=== PATIENT | male | born 1990 | race Caucasian/White ===

== ENCOUNTER 2016-08-05 10:44 | Emergency (ER) | payer OTHER, MEDICARE ==
[~2016-08-05] VITALS: Ht 180.3 cm; Wt 59.9 kg
[~2016-08-05 10:44] MED LIST: ALBUTEROL1.25 MG/3 INH; IBUPROFEN100 MG/51 PO; MOTRIN CHI100 MG/5 M PO; PROVENTIL HFA6.7 GM INH; ROBITUSSIN (SUG1 BOT PO; ROBITUSSIN COU118 M1 PO; TYLENOL/CODEINE5 ML PO; VIBRAMYCIN50 MG/5 ML PO; ZITHROMAX200 MG/52 PO; ZITHROMAX250 M2 PO
--- NOTE | 2016-08-05 11:49 | ED GI/GU/ABDOMINAL COMPLAINT ---
History of Present Illness General Chief Complaint: Nausea, Vomiting, Diarrhea Stated Complaint: NVD Source: patient, family Exam Limitations: no limitations Vital Signs & Intake/Output Vital Signs & Intake/Output Vital Signs Date Time Temp Pulse Resp B/P B/P Pulse O2 O2 Flow FiO2 Mean Ox Delivery Rate 08/05 1251 98.6 101 20 131/74 96 08/05 1158 Room Air 08/05 1057 98.7 102 15 132/77 100 Room Air Allergies Coded Allergies: azithromycin (From ZITHROMAX) (Intermediate, NAUSEA AND VOMITING 11/10/15) penicillin G (Intermediate, HIVES 11/10/15) morphine (CAN'T HAVE R/T GERMAINE ATAXIA 11/10/15) Reconcile Medications Albuterol Sulfate (Proventil Hfa) 6.7 GM HFA.AER.AD 2 PUF INH Q4 Shortness of Breath Azithromycin (Zithromax) 250 MG TABLET 1 DP PO AD COPD/BRONCHITIS 2 the first day followed by 1 for days 2-5 DISPENSE A LIQUID Guaifenesin/Dextromethorphan (Robitussin Cough-Chest Dm Liq) 118 ML LIQUID 5- 10 ML PO Q4 PRN COUGH Triage Note: PT TO ED FOR A THREE DAY HX OF NAUSEA AND VOMITING, REPORTING HE ATE A YI BUFFET ON SUNDAY AND STARTED FEELING SICK LATER THAT NIGHT. Triage Nurses Notes Reviewed? 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 MILD ABDOMINAL DISCOMFORT, NO DIARRHEA, AFEBRILE. FEELS NAUSEOUS AND DEHYDRATED WITH DECREASED APPETITE (CHANG RODRIGUEZ,[facility]) Past History Travel History Traveled to [place] past 21 day No Medical History Any Pertinent Medical History? 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 No (BREANN DOWNING MD) Review of Systems Review of Systems Constitutional: Reports: see HPI. EENTM: Reports: no symptoms. Respiratory: Reports: no symptoms. Cardiovascular: Reports: no symptoms. GI: Reports: see HPI. Genitourinary: Reports: no symptoms. Musculoskeletal: Reports: no symptoms. Skin: Reports: no symptoms. Neurological/Psychological: Reports: no symptoms. Hematologic/Endocrine: Reports: no symptoms. Immunologic/Allergic: Reports: no symptoms. All Other Systems: Reviewed and Negative (BREANN DOWNING MD) Physical Exam Physical Exam General Appearance: well developed/nourished, no apparent distress Head: normal appearance Ears, Nose, Throat, Mouth: DRY MUCOUS MEMBRANES Neck: normal inspection Respiratory: normal breath sounds Cardiovascular: regular rate/rhythm Gastrointestinal: soft, non-tender Rectal: deferred Core Measures ACS in differential dx? No Severe Sepsis Present: No Septic Shock Present: No (BREANN DOWNING MD) Progress Differential Diagnosis: appendicitis, biliary colic, cholecystitis, diverticulitis, gastritis, pancreatitis, peptic ulcer, PUD/GERD Plan of Care: Orders Procedure Date/time Status HEPATIC FUNCTION PANEL 08/05 1142 Complete CBC WITHOUT DIFFERENTIAL 08/05 1142 Complete BASIC ELECTROLYTES PLUS BUN&CR 08/05 1142 Complete Laboratory Tests 08/05/16 1145: Anion Gap 15, Estimated GFR > 60, BUN/Creatinine Ratio 21.4, Total Bilirubin 0.8 , Direct Bilirubin 0.4, AST 35, ALT 36, Alkaline Phosphatase 96, Total Protein 7.4, Albumin 4.5, CBC w Diff MAN DIFF ORDERED, RBC 5.68, MCV 89.2, MCH 30.0, RDW 12.7, MPV 10.2, Gran % 85.9 H, Lymphocytes % 5.1 L, Monocytes % 8.7, Eosinophils % 0.2, Basophils % 0.1, Absolute Granulocytes 13.6 H, Segmented Neutrophils 79 H, Band Neutrophils 7 H, Absolute Lymphocytes 0.8 L, Lymphocytes 5 L, Monocytes 8, Absolute Monocytes 1.4 H, Eosinophils 1, Absolute Eosinophils 0, Absolute Basophils 0, Platelet Estimate ADEQUATE, Normocytic RBCs VERIFIED, Normochromic RBCs VERIFIED, PUBS MCHC 33.6 Initial ED EKG: none (BREANN DOWNING MD) Departure Departure Disposition: HOME OR SELF CARE Condition: Stable Clinical Impression Primary Impression: Acute gastroenteritis Secondary Impressions: Dehydration Referrals: SALAZAR VANNESA RODRIGUEZ (PCP/Family) Additional Instructions: STAY WELL HYDRATED, FOLLOW UP WITH PCP Departure Forms: Customer Survey General Discharge Information (BREANN DOWNING MD) Primary Impression: Acute gastroenteritis Secondary Impressions: Dehydration Referrals: SALAZAR VANNESA RODRIGUEZ (PCP/Family) Additional Instructions: STAY WELL HYDRATED, FOLLOW UP WITH PCP Departure Forms: Customer Survey General Discharge Information (BREANN DOWNING MD)
[2016-08-05 12:06] LABS: ABSOLUTE BASOPHIL COUNT 0 /CUMM (0.0-0.2); ABSOLUTE EOSINOPHIL COUNT 0 /CUMM (0.0-0.7); ABSOLUTE LYMPH COUNT 0.8 /CUMM (1.2-3.4); ABSOLUTE MONOCYTE COUNT 1.4 /CUMM (0.10-0.60); EOSINOPHIL % 0.2 % (0-5); GRANULOCYTE % 85.9 % (42.2-75.2); MEAN CORPUSCULAR HGB CONC 33.6 G/DL (33.0-37.0); MEAN PLATELET VOLUME 10.2 FL (7.4-10.4); PLATELET COUNT 217 /CUMM (130-400); RBC DISTRIBUTION WIDTH 12.7 % (11.5-14.5); RED BLOOD CELL CT 5.68 /CUMM (4.70-6.10); WHITE BLOOD CELL COUNT 15.9 /CUMM (4.8-10.8)
[2016-08-05 12:10] LABS: ABSOLUTE GRANULOCYTE CT 13.6 /CUMM (1.4-6.5); BASOPHIL % 0.1 % (0.0-2.0); HEMATOCRIT 50.7 % (42-52); MEAN CORPUSCULAR VOLUME 89.2 FL (80.0-94.0)
[2016-08-05 12:51] VITALS: BP 131/74
== END 2016-08-05 14:00 ==
LOC: ERH 10:44
PROVIDERS: Internal Medicine
DX: K52.9 Noninfective gastroenteritis and colitis, unspecified (principal); E86.0 Dehydration
CPT/HCPCS: 82436; 96361; 96374; J2405

== ENCOUNTER 2017-09-04 19:06 | Inpatient (IN) | payer OTHER, MEDICARE ==
[~2017-09-04] VITALS: Ht 177.8 cm; Wt 59.0 kg
[2017-09-04] MEDS ORDERED: METHIMAZOLE10 M1 PO (19:25)
[2017-09-04 19:49] LABS: ABSOLUTE BASOPHIL COUNT 0 /CUMM (0.0-0.2); ABSOLUTE EOSINOPHIL COUNT 0.1 /CUMM (0.0-0.7); ABSOLUTE GRANULOCYTE CT 3.7 /CUMM (1.4-6.5); ABSOLUTE LYMPH COUNT 1.8 /CUMM (1.2-3.4); ABSOLUTE MONOCYTE COUNT 0.5 /CUMM (0.10-0.60); BASOPHIL % 0.7 % (0.0-2.0); EOSINOPHIL % 1.5 % (0-5); GRANULOCYTE % 60.3 % (42.2-75.2); HEMATOCRIT 44.7 % (42-52); MEAN CORPUSCULAR HGB 30.5 PG (27.0-31.0); MEAN CORPUSCULAR HGB CONC 33.7 G/DL (33.0-37.0); MEAN CORPUSCULAR VOLUME 90.4 FL (80.0-94.0); MEAN PLATELET VOLUME 9.2 FL (7.4-10.4); PLATELET COUNT 217 /CUMM (130-400); RED BLOOD CELL CT 4.95 /CUMM (4.70-6.10); WHITE BLOOD CELL COUNT 6.1 /CUMM (4.8-10.8)
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
--- NOTE | 2017-09-05 08:15 | ED PSYCH CRISIS CONSULTATION ---
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 The patient has become wheelchair bound and requires assistance for most activities of daily living. He presents calm and cooperative and had good participation in the evaluation. He did appear to struggle with some questions asked and needed them to be asked in different ways. He states that he has been depressed and he started to have suicidal ideations. He rates his depression a 9 out of 10 and his anxiety a 9 out of 10, 10 being the most severe. The patient states that he has never had any suicidal ideations until recently and feels that it became out of control yesterday. He states that he has never attempted suicide and did not have a plan yesterday. He denies any homicidal ideations. He states he has been feeling helpless, hopeless and useless with sleep and appetite disturbances. He reports that he has also had difficulty with energy, motivation and concentration. The patient reports that he has never had any treatment for his mental health issues. He states that he has been using Cannabis, however states that he is trying to stop using it. He denies any substance abuse treatment history. He states "that everything is difficult," noting that he requires assistance for almost all activities of daily living, secondary to his Fredreichs Ataxia. He denies any history of trauma or abuse. He states that he is not in a relationship and does not have any children. He states that he resides with his grandparents and that his aunts help to care for him. He is not sure what would be helpful at this time. Please see separate note for collateral information. Patient's Address: [address] [place] [address] Other Phone Number: Who Do You Live With? Family Family/Informants Interviewed: See separate collateral note Allergies - Coded Allergies: azithromycin (From ZITHROMAX) (Intermediate, NAUSEA AND VOMITING 11/10/15) penicillin G (Intermediate, HIVES 11/10/15) morphine (CAN'T HAVE R/T GERMAINE ATAXIA 11/10/15) Current Medications - Scheduled Medications Albuterol Sulfate (Proventil Hfa) 6.7 GM HFA.AER.AD 2 PUF INH Q4 Shortness of Breath #1 INHAL Prescribed by Amado Aguilar MD on 11/10/15 Azithromycin (Zithromax) 250 MG TABLET 1 DP PO AD COPD/BRONCHITIS #6 TAB Prescribed by Kai Callejas MD on 11/10/15 Methimazole 10 MG TABLET 1 TAB PO DAILY HYPERTHYROIDISM #100 (Reported) Entered as Reported by Fermín Richter on 09/04/171924 Scheduled PRN Medications Guaifenesin/Dextromethorphan (Robitussin Cough-Chest Dm Liq) 118 ML LIQUID 5- 10 ML PO Q4 PRN COUGH #1 Prescribed by Amado Aguilar MD on 11/10/15 Laboratory Results: Laboratory Tests 09/04/172210: Urine Opiates Screen < 100, Methadone Screen < 40, Barbiturate Screen < 60, Ur Phencyclidine Scrn < 6.00, Amphetamines Screen < 100, U Benzodiazepines Scrn < 85, Urine Cocaine Screen < 50, Urine Cannabis Screen 77.40 H 09/04/171937: Anion Gap 11, Estimated GFR > 60, BUN/Creatinine Ratio 13.3, Glucose 95, Calcium 10.0, Total Bilirubin 0.5, AST 30, ALT 28, Alkaline Phosphatase 70, Total Protein 6.8, Albumin 4.2, Globulin 2.6, Albumin/Globulin Ratio 1.6, CBC w Diff NO MAN DIFF REQ, RBC 4.95, MCV 90.4, MCH 30.5, MCHC 33.7, RDW 13.0, MPV 9.2, Gran % 60.3, Lymphocytes % 29.5, Monocytes % 8.0, Eosinophils % 1.5, Basophils % 0.7, Absolute Granulocytes 3.7, Absolute Lymphocytes 1.8, Absolute Monocytes 0.5 , Absolute Eosinophils 0.1, Absolute Basophils 0, Serum Alcohol < 10.0 Past History Past Medical History Neurological: NONE EENT: NONE Cardiovascular: Cardiomyopathy Respiratory: NONE Gastrointestinal: NONE Hepatic: NONE Renal: NONE Musculoskeletal: MUSCULAR DYSTROPHY GERMAINE ATAXIA COLLAR BONE FX FOREARM FX Gerson's Ataxia Psychiatric: NONE Endocrine: NONE Blood Disorders: NONE Cancer(s): NONE 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 Physical Limitations (Interventions): He has been diagnosed with Fredreichs Ataxia Psychiatric Treatment History Psych Treatment Psychiatric Treatment No (Pt. denies) Inpatient Treatment No Outpatient Treatment No Location of Treatment N/A Reason for Treatment N/A Dates of Treatment N/A Response to Treatment N/A Diagnosis by History: N/A Substance Use/Abuse History Drug Use/Abuse Substances Used/Abused Yes Substance Used/Abused Marijuana First Use Unknown Last Used Unclear How much used/taken Unclear How often 1x weekly For how long Unclear Route of use Inhalation Substance Abuse Treatment Substance Abuse Treatment Past Substance Abuse TX No Inpatient Treatment No Outpatient Treatment No Location of Treatment N/A Reason for Treatment N/A Dates of Treatment N/A Response to Treatment N/A Comments: N/A Current Mental Status Mental Status Orientation: Person, Place, Situation Affect: WNL Speech: Soft (Somewhat slowed) Neuro-vegetative: Appetite Decreased, Concentration Poor, Energy Decreased, Helpless, Sleep Disturbance Appearance Appearance- Dress/Hygiene: The patient was lying in bed, in hospital attire and appeared disheveled. Behaviors Thought Process: WNL Thought Content: WNL Memory: WNL Insight: WNL SI/HI Risk Assessment Past Suicidal Ideation/Attempts No Current Suicidal Ideation/Att Yes Past Homicidal Ideation/Att: No Current Homicidal Ideation/Attempts No Degree of Intent: The patient states that he recently started to have suicidal ideations. He denies any history of suicide attempts. Danger To: Self Gravely Disabled: N/A Risk Factors: chronic/serious med cond., high anxiety/distress, substance abuse, male Lethality Ratin PTSD Checklist PTSD Done? patient declined (Denies Trauma and abuse hx.) ED Management Sitter: Yes Restraints: No DSM5/PS Stressors/Medical Prob Diagnosis' (DSM 5, Stressors, Medical): F32.9 Unspecified Depressive Disorder F12.10 Cannabis use Disorder Medical: Fredreichs Ataxia Stressors: Chronic medical issue Current GAF: 29 Comments: N/A Departure Disposition Psych Medical Clearance Date: 09/05/17 Medically Cleared at: 0715 Time Started: 714 Time Ended: 799 Psychiatrist Consulted: Dr. Farias Date Disposition Established: 09/05/17 Time Disposition Established: 814 Plan for Disposition - Modality: Inpatient Psychiatry Facility: [facility] Rationale for Disposition: The patient presents with worsening symptoms of depression and suicidal ideations. The patient has been feeling helpless, hopeless and useless with sleep and appetite disturbances. He has had a decrease in motivation, energy and concentration. Case discussed with Dr. Hinojosa and the patient will be admitted to [facility]. He is willing to sign himself into the unit, however is physically unable to sign the paperwork. This sports book writer and CONCRETE PUMP OPERATOR HELPER Vic Graves will speak with the patient together and get verbal consent for admission. Type of IP Admission: Voluntary Additional Instructions: N/A Referrals Brito Vivek RODRIGUEZ (PCP/Family)
--- NOTE | 2017-09-05 11:22 | IP CRISIS DIAG ASSESS PSYCH ---
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 The patient has become wheelchair bound and requires assistance for most activities of daily living. He presents calm and cooperative and had good participation in the evaluation. He did appear to struggle with some questions asked and needed them to be asked in different ways. He states that he has been depressed and he started to have suicidal ideations. He rates his depression a 9 out of 10 and his anxiety a 9 out of 10, 10 being the most severe. The patient states that he has never had any suicidal ideations until recently and feels that it became out of control yesterday. He states that he has never attempted suicide and did not have a plan yesterday. He denies any homicidal ideations. He states he has been feeling helpless, hopeless and useless with sleep and appetite disturbances. He reports that he has also had difficulty with energy, motivation and concentration. The patient reports that he has never had any treatment for his mental health issues. He states that he has been using Cannabis, however states that he is trying to stop using it. He denies any substance abuse treatment history. He states "that everything is difficult," noting that he requires assistance for almost all activities of daily living, secondary to his Fredreichs Ataxia. He denies any history of trauma or abuse. He states that he is not in a relationship and does not have any children. He states that he resides with his grandparents and that his aunts help to care for him. He is not sure what would be helpful at this time. Please see separate note for collateral information. Patient's Address: [address] [place] [address] Other Phone Number: Who Do You Live With? Family Feel Safe Where You Live? Yes Feel Safe in Your Relationship No (Not in a relationship) If No, Please Elaborate: N/A Marital Status: single Do You Have Children? No Primary Language? Portuguese Family/Informants Interviewed: See separate collateral note Allergies - Coded Allergies: azithromycin (From ZITHROMAX) (Intermediate, NAUSEA AND VOMITING 11/10/15) penicillin G (Intermediate, HIVES 11/10/15) morphine (CAN'T HAVE R/T GERMAINE ATAXIA 11/10/15) Current Medications - Scheduled Medications Albuterol Sulfate (Proventil Hfa) 6.7 GM HFA.AER.AD 2 PUF INH Q4 Shortness of Breath #1 INHAL Prescribed by Amado Aguilar MD on 11/10/15 Azithromycin (Zithromax) 250 MG TABLET 1 DP PO AD COPD/BRONCHITIS #6 TAB Prescribed by Kai Callejas MD on 11/10/15 Methimazole 10 MG TABLET 1 TAB PO DAILY HYPERTHYROIDISM #100 (Reported) Entered as Reported by Fermín Richter on 09/04/171924 Scheduled PRN Medications Guaifenesin/Dextromethorphan (Robitussin Cough-Chest Dm Liq) 118 ML LIQUID 5- 10 ML PO Q4 PRN COUGH #1 Prescribed by Amado Aguilar MD on 11/10/15 Consequences of Psych Med Use: N/A Comment: N/A Lab Results: Laboratory Tests 09/05/17 1102: Urine Color YEL, Urine Clarity CLEAR, Urine pH 6.5, Ur Specific [place] 1.025, Urine Protein NEG, Urine Ketones NEG, Urine Nitrite NEG, Urine Bilirubin NEG, Urine Urobilinogen 0.2, Ur Leukocyte Esterase NEG, Ur Microscopic EXAM NOT REQUIRED, Urine Hemoglobin NEG, Urine Glucose NEG 09/04/17 2211: Urine Opiates Screen < 100, Methadone Screen < 40, Barbiturate Screen < 60, Ur Phencyclidine Scrn < 6.00, Amphetamines Screen < 100, U Benzodiazepines Scrn < 85, Urine Cocaine Screen < 50, Urine Cannabis Screen 77.40 H 09/04/17 1938: Anion Gap 11, Estimated GFR > 60, BUN/Creatinine Ratio 13.3, Glucose 95, Calcium 10.0, Total Bilirubin 0.5, AST 30, ALT 28, Alkaline Phosphatase 70, Total Protein 6.8, Albumin 4.2, Globulin 2.6, Albumin/Globulin Ratio 1.6, CBC w Diff NO MAN DIFF REQ, RBC 4.95, MCV 90.4, MCH 30.5, MCHC 33.7, RDW 13.0, MPV 9.2, Gran % 60.3, Lymphocytes % 29.5, Monocytes % 8.0, Eosinophils % 1.5, Basophils % 0.7, Absolute Granulocytes 3.7, Absolute Lymphocytes 1.8, Absolute Monocytes 0.5 , Absolute Eosinophils 0.1, Absolute Basophils 0, Serum Alcohol < 10.0 Toxicology Screen Completed? Yes Results: positive (Cannabis) Symptoms of Use: N/A Past History Past Medical History Medical History: Fredreichs Ataxia Past Surgical History Surgical History none Abuse/Trauma History Trauma History/Current Trauma: Denies Legal History Current Legal Status: none Have you ever been arrested? 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 Physical Limitations (Interventions): He has been diagnosed with Fredreichs Ataxia Psychiatric Treatment History Psych Treatment Psychiatric Treatment No (Pt. denies) Inpatient Treatment No Outpatient Treatment No Location of Treatment N/A Reason for Treatment N/A Dates of Treatment N/A Response to Treatment N/A Diagnosis by History: N/A Risk Factors: chronic/serious med cond., high anxiety/distress, substance abuse, male Substance Use/Abuse History Drug Use/Abuse minimum 12mo Hx Substances Used/Abused Yes Substance Used/Abused Marijuana First Use Unknown Last Used Unclear How much used/taken Unclear How often 1x weekly For how long Unclear Route of use Inhalation Substance Abuse Treatment Substance Abuse Treatment Past Substance Abuse TX No Inpatient Treatment No Outpatient Treatment No Location of Treatment N/A Reason for Treatment N/A Dates of Treatment N/A Response to Treatment N/A Comments: N/A Sexual History Sexual Concerns: None noted Education History Highest Level of Education: high school/GED Preferred Learning Style: Unknown Current Mental Status Mental Status Orientation: Person, Place, Situation Affect: WNL Speech: Soft (Somewhat slowed) Neuro-vegetative: Appetite Decreased, Concentration Poor, Energy Decreased, Helpless, Sleep Disturbance Appearance Appearance- Dress/Hygiene: The patient was lying in bed, in hospital attire and appeared disheveled. Behaviors Thought Process: WNL Thought Content: WNL Memory: WNL Insight: WNL SI/HI Risk Assessment - Minimum 6mo History- Past Suicidal Ideation/Attempts No Current Suicidal Ideation/Att Yes Past Homicidal Ideation/Att: No Current Homicidal Ideation/Attempts No Degree of Intent: The patient states that he recently started to have suicidal ideations. He denies any history of suicide attempts. Danger To: Self Gravely Disabled: N/A Risk Factors: chronic/serious med cond., high anxiety/distress, substance abuse, male Lethality Ratin Needs/Init TX Plan/Goals: Adimt to the inpatient unit for safety and symptom stabilization. Work with the providers on medication evaluation. Work with the Social Workers, to transtition to care in the community. Attend group, family and individual sessions. AUDIT-C Questionnaire: AUDIT-C Questionnaire: Response Value ETOH use in the past year Never 0 # drinks typical/day Doesn't Drink 0 6 or > drinks per occasion Never 0 Total 0 DSM5/PS Stressors/Medical Prob Diagnosis' (DSM 5, Stressors, Medical): F32.9 Unspecified Depressive Disorder F12.10 Cannabis use Disorder Medical: Fredreichs Ataxia Stressors: Chronic medical issue Current GAF: 29 Comments: N/A
[2017-09-05 12:47] VITALS: BP 130/75
--- NOTE | 2017-09-05 14:08 | CPS PROVIDER INIT ASMT PSYCH ---
See Addendum Psychiatric Admission Interactive Media Designer's Note Reviewed: Yes Patient Seen and Examined: Yes Identifying Information: young white man, bedbound Chief Complaint: depression and suicidal thinking Reaction to Hospitalization: agreeable History of Present Illness Onset of Illness: several months ago Circumstances Leading to Admission: debilitating medical illness with progression and needs assistance with ADLs, withdrawal and SI Problem(s) Justifying Need for Admission: suicidal thinking Other HPI: 27 year old gentleman without treated psychiatric history, current diagnosis of Friedreichs Ataxia, called 911 with suicidal thinking. His illness has progressed since he was in 3rd grade, and he is currently wheelchair bound and needs assistance with nearly all activities of daily living. He lives with his grandparents and cousin, who provide much of the care for him in addition to 3 days 3hours per week home care. His aunt Chrissie (Edelmira) was at bedside to provide some collateral. Both noted that his depressive symptoms have progressed over the last 5-6 months, with less energy, less motivation and impaired sleep. He has been unable to concentrate and lost interest in his activities. He has started using cannabis to improve his mood. States that life is difficult and that he is frustrated with his life. Luisito stated that he has been having suicidal thinking over the last several months, but yesterday it got very bad and he was unable to reach any family to speak to them, so he called 911. He has had no attempts and had no serious thoughts of following through on a suicide attempt, but his thoughts were to at one point run into the river with his wheelchair. He has little motivation to socialize or go outside, and stated that he has had impaired sleep over the last weeks. Last night however he slept well, and does feel better in the hospital. He denies current thoughts to , denies having any history of hallucinations and does not appear to have any psychotic thinking. Aunt stated that over the last few years, his high school friends have been getting , moving away, working etc, and that he has few people he socializes with apart from family. Noted that he usually gets up, gets assistance with toileting, eventually goes outside to the shed which is his man cave, and calls for his cousin to help move him back when he is ready to go inside the house. Some friends and family stop by to spend time with him, and his elderly grandparents and cousin provide much of his care. aunt noted a few odd text message related to politics over the last few months, but nothing that she would think is grossly strange or bizarre; apart from the depression and withdrawal, no bizarre behaviors or statements per her. Stated that they brought up his depression with his primary care provider, Dr. Brito, who at one point considered clonazepam, which Luisito was not interested in. Luisito stated that he saw a psychologist at school from age 11 after the of his mother (from liver disease) until he graduate high school around age 19, for about hour per week. He denied having any other outpatient or inpatient psychiatric treatment or any suicide attempts, or psychiatric medication. Past Psychiatric History Past Diagnosis(es)- if any: none - bereavement perhaps from of his mother at age 11 Past Precipitating Factors- if any: worsening depression, withdrawal, poor motivation, debilitating illness - Include inpatient and outpatient treatment Treatment History: Stated that they brought up his depression with his primary care provider, Dr. Brito, who at one point considered clonazepam, which Luisito was not interested in. Luisito stated that he saw a psychologist at school from age 11 after the of his mother (from liver disease) until he graduate high school around age 19, for about hour per week. He denied having any other outpatient or inpatient psychiatric treatment or any suicide attempts, or psychiatric medication. History of Suicide Attempts or Gestures none Substance Abuse History: started using cannabis, not regularly. smoked cigarettes intermittently and alcohol in the past but not for many months Allergies: Coded Allergies: azithromycin (From ZITHROMAX) (Intermediate, NAUSEA AND VOMITING 11/10/15) penicillin G (Intermediate, HIVES 11/10/15) morphine (CAN'T HAVE R/T GERMAINE ATAXIA 11/10/15) Home Med List: albuterol - Include any medical condition(s) that may - impact the patient's recovery/remission Past Medical History: Friedreich's Ataxia - cardiomyopathy, debilitating progressive muscle weakness, eyesight deterioration, thyroid illness. 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 History of MRSA: No History of VRE: No History of CDIFF: No Isolation History: Standard Surgical History Surgical History: none Psychiatric Family/Social Hx Family History Psychiatric Illness: unknown Substance Use: none Suicides: none Social History Living Situation: lives with grandparents and cousin Significant Relationships (family/friends): some friends Education: high school graduate Vocation/Occupation: worked in 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 - #1 Recognizing dangerous situations. - #2 Coping Skills. - #3 Basic information about quitting. Status of Tobacco Cessation Counseling: Not Applicable Cessation Med Status Not Applicable Alcohol Screening - ETOH screen POS if BAL >=80 or Audit-C>= M4/F3 Audit-C Score from Diag Assess: 0 Blood Alcohol Level: Laboratory Tests 09/04 1937 Toxicology Serum Alcohol (<10 MG/DL) < 10.0 Alcohol Use Screening Results: Neg per Audit C &/or BAL - If ETOH counseling indicated - the following topics are required. - #1 Express concern about the patient's - drinking at unhealthy levels, include informing - of national norms for moderate drinking: - men <= 14 drinks/week, max 4 drinks/occasion - women <= 7 drinks/week, max 3 drinks/occasion - #2 Providing feedback, including linking alcohol to - negative physical effects (liver injury, hypertension) - negative emotional effects (relationship problems and - depression) - negative occupational consequences (reduced work - performance) - #3 Advising the patient to abstain from alcohol or - to drink below national norms for moderate drinking - (as listed above). Status of ETOH Use Counseling: N/A B/C NO ETOH Use Metabolic Screening - Screen if on a Neuroleptic Medication - Metabolic screening should include: - Blood Pressure, BMI, Glucose or Hgb A1c, & a - Lipid profile from within the past 365 days. Metabolic Screening () Not Applicable, patient not on a neuroleptic. OR () Patient on a neuroleptic(s) . Enter below results for Hemoglobin A1C, and lipid panel if obtained during the last 365 days. BMI: 18.600 Blood Pressure: 130/75 Laboratory Results From [facility] (If applicable): Exam and Plan Mental Status Examination Ambulation Status: unable to Appearance: slim young man Attitude towards examiner: cooperative Psychomotor activity: slowed Behavior: slowed Quality of speech: dysarthric Affect: constricted Mood: down Suicidal Ideation: passive, not current Homicidal Ideation: none Hallucinations: none Paranoid/Delusional Material: none Difficulties with thought organization: none, some slowing and needs to have some things repeated due to difficulty hearing Insight: adequate Judgment: adequate Orientation: x3 Cognition: intact Memory Function: intact for basic tests Estimate of intellectual functioning: average Assets/Strengths Patient Identified Assets/Strengths: self aware, self help seeking, has supportive family, education and self advocate Impression/Plan Impression and Plan: 27 year old gentleman without treated psychiatric history, current diagnosis of Friedreichs Ataxia, called 911 with suicidal thinking. Presents with withdrawal , poor motivation, low energy and impaired sleep; intermittent suicidal thinking over the last 5-6 months; in context of debilitating muscular dystrophy, near total care, inadequate social network (friends), and inadequate home care services. Plan: Luisito is interested in medication for his mood, notably SSRI, and we discussed indications, length of treatment and potential AE. Aunt will bring wheelchair for him, so he can be in the milieu Groups, family support, work with SW and team to set up outpatient services and see if any more in home services can be added. Sitter for ADLs - Include all active medical diagnosis that require tx DSM 5 Diagnosis(es): major depressive disorder - Initial Tx Plan for Active Psych & Medical Conditions Treatment Plan: milieu therapy, antidepressant medication, outpatient planning, sitter for assistance in basic functions. - Factors that would help patient function - in a less restrictive setting. Factors: severe medical illness, high risk suicidal thoughts (run wheelchair into a river ), worsening depression - address with medication, groups, outpatient planning, therapy
--- NOTE | 2017-09-05 14:45 | History & Physical ---
General Information and HPI MD Statement: I have seen and personally examined ALANNA ARRINGTON and documented this H&P. The patient is a 27 year old M who presented with a patient stated chief complaint of suicidal ideations Source of Information: patient, old records Exam Limitations: unable to give history, poor historian History of Present Illness: Patient poor historianrosa obtained from medical records. "27 year old gentleman without treated psychiatric history, current diagnosis of Friedreichs Ataxia, called 911 with suicidal thinking. His illness has progressed since he was in 3rd grade, and he is currently wheelchair bound and needs assistance with nearly all activities of daily living. He lives with his grandparents and cousin, who provide much of the care for him in addition to 3 days 3hours per week home care. His aunt Chrissie (Edelmira) was at bedside to provide some collateral. Both noted that his depressive symptoms have progressed over the last 5-6 months, with less energy, less motivation and impaired sleep. He has been unable to concentrate and lost interest in his activities. He has started using cannabis to improve his mood. States that life is difficult and that he is frustrated with his life." He denies headache, cough, chest pain , nausea, abdomnial pain, diarhea, urinary symptoms. ROS negative excpt as above. Allergies/Medications Allergies: Coded Allergies: azithromycin (From ZITHROMAX) (Intermediate, NAUSEA AND VOMITING 11/10/15) penicillin G (Intermediate, HIVES 11/10/15) morphine (CAN'T HAVE R/T GERMAINE ATAXIA 11/10/15) Home Med list Albuterol Sulfate (Proventil Hfa) 6.7 GM HFA.AER.AD 2 PUF INH Q4 Shortness of Breath Azithromycin (Zithromax) 250 MG TABLET 1 DP PO AD COPD/BRONCHITIS 2 the first day followed by 1 for days 2-5 DISPENSE A LIQUID Guaifenesin/Dextromethorphan (Robitussin Cough-Chest Dm Liq) 118 ML LIQUID 5- 10 ML PO Q4 PRN COUGH Methimazole 10 MG TABLET 1 TAB PO DAILY HYPERTHYROIDISM (Reported) Compliance With Home Meds: FAIR Past History Travel History Traveled to [place] past 21 day No Medical History Neurological: dementia (freidrich ataxia) EENT: NONE Cardiovascular: Cardiomyopathy Respiratory: NONE Gastrointestinal: NONE Hepatic: NONE Renal: NONE Musculoskeletal: MUSCULAR DYSTROPHY GERMAINE ATAXIA COLLAR BONE FX FOREARM FX Gerson's Ataxia Psychiatric: NONE Endocrine: hyperthyroidism Blood Disorders: NONE Cancer(s): NONE 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 Home Services at Home: Home Health Aide, Social Work Primary Language: Nicarag[place] Smoking Status: Unknown If Ever Smoked Other Social History: needs help with daily activities Functional Ability ADLs Needs Assist: dressing, eating. Ambulation: non-ambulatory IADLs Needs Assist: transportation. Review of Systems Review of Systems Constitutional: Denies: no symptoms, diaphoresis, fever, malaise. EENTM: Denies: blurred vision, ear discharge, ear pain. Cardiovascular: Denies: chest pain. Respiratory: Denies: cough, short of breath. GI: Denies: abdominal pain, diarrhea. Genitourinary: Denies: dysuria. Musculoskeletal: Denies: back pain. Neurological/Psychological: Reports: ataxia, cognitive dysfunction, dementia, emotional problems. Hematologic/Endocrine: Denies: no symptoms. Exam & Diagnostic Data Last 24 Hrs of Vital Signs/I&O Vital Signs Date Time Temp Pulse Resp B/P B/P Pulse O2 O2 Flow FiO2 Mean Ox Delivery Rate 09/05 1247 97.8 68 130/75 09/05 1150 98.7 60 18 139/85 99 Room Air Room Air 09/05 0605 98.1 50 14 114/63 100 Room Air 09/04 2334 98.2 50 16 113/74 98 Room Air 09/04 2209 98.7 56 16 112/72 96 Room Air 09/04 1910 99.0 68 16 134/68 96 Room Air Intake & Output 09/05 1600 04 0800 09/05 0000 Intake Total 0 Output Total Balance 0 Intake, Oral 0 Patient 58.967 kg 58.967 kg Weight Weight Reported by Patient Measurement Method Physical Exam General Appearance Alert, Oriented X3, Cooperative, No Acute Distress Skin No Rashes, No Breakdown HEENT Atraumatic, PERRLA, EOMI Neck Supple, No JVD Cardiovascular Regular Rate Lungs Normal Air Movement Abdomen Soft, No Tenderness Neurological Exam Findings: Cranial Nerves 3-12 NL Cranial Nerves II through XII: intact Extremities No Clubbing, No Cyanosis Last 24 Hrs of Labs/Fabiano: Laboratory Tests 09/05/17 1102: Urine Color YEL, Urine Clarity CLEAR, Urine pH 6.5, Ur Specific [place] 1.025, Urine Protein NEG, Urine Ketones NEG, Urine Nitrite NEG, Urine Bilirubin NEG, Urine Urobilinogen 0.2, Ur Leukocyte Esterase NEG, Ur Microscopic EXAM NOT REQUIRED, Urine Hemoglobin NEG, Urine Glucose NEG 09/04/17 2211: Urine Opiates Screen < 100, Methadone Screen < 40, Barbiturate Screen < 60, Ur Phencyclidine Scrn < 6.00, Amphetamines Screen < 100, U Benzodiazepines Scrn < 85, Urine Cocaine Screen < 50, Urine Cannabis Screen 77.40 H 09/04/17 1938: Anion Gap 11, Estimated GFR > 60, BUN/Creatinine Ratio 13.3, Glucose 95, Calcium 10.0, Total Bilirubin 0.5, AST 30, ALT 28, Alkaline Phosphatase 70, Total Protein 6.8, Albumin 4.2, Globulin 2.6, Albumin/Globulin Ratio 1.6, CBC w Diff NO MAN DIFF REQ, RBC 4.95, MCV 90.4, MCH 30.5, MCHC 33.7, RDW 13.0, MPV 9.2, Gran % 60.3, Lymphocytes % 29.5, Monocytes % 8.0, Eosinophils % 1.5, Basophils % 0.7, Absolute Granulocytes 3.7, Absolute Lymphocytes 1.8, Absolute Monocytes 0.5 , Absolute Eosinophils 0.1, Absolute Basophils 0, Serum Alcohol < 10.0 Diagnostic Data EKG Results obtain EKG Assessment/Plan As Ranked By This Provider Problem List: 1. Hyperthyroidism Miscellaneous Miscellaneous Documentation Attending Case Discussed With: Radha Jules MD Primary Care Physician: Vivek Brito MD Patient sees these Specialists PCP as per records Level of Patient Care: [facility] Attending Review Statement Attending Statement Attending Statement: examined this patient, reviewed EMR data (avail), discussed with nursing Attending Assessment/Plan: 27 o/m with pmh of freidrich ataxia with baseline poor functional status and dependent on ADLs ia admitted to [facility] service for suicidal ideations and severe depression. Concepcion has been on board and plan is to start SSRI. Please obtain baseline EKG and if QTC is not prolonged steven start SSRI. Will resume his home medication of methimazole for hyperthyroidim. Obtaining baseline TFTs would be helpful. Will continue to provide supportive care as needed.
--- NOTE | 2017-09-05 15:07 | ED PSYCHIATRIC COMPLAINT ---
History of Present Illness General Chief Complaint: Psychiatric Related Complaint Stated Complaint: UNSPECIFIED DEPRESSION Vital Signs & Intake/Output Vital Signs & Intake/Output Vital Signs Date Time Temp Pulse Resp B/P B/P Pulse O2 O2 Flow FiO2 Mean Ox Delivery Rate 09/05 1641 56 112/60 07 1247 97.8 68 130/75 09/05 1150 98.7 60 18 139/85 99 Room Air Room Air 09/05 0605 98.1 50 14 114/63 100 Room Air 09/04 2334 98.2 50 16 113/74 98 Room Air 09/04 2209 98.7 56 16 112/72 96 Room Air 09/04 1910 99.0 68 16 134/68 96 Room Air ED Intake and Output 09/05 0000 09/04 1200 Intake Total 0 Output Total Balance 0 Intake, Oral 0 Patient 130 lb Weight Weight Reported by Patient Measurement Method Allergies Coded Allergies: azithromycin (From ZITHROMAX) (Intermediate, NAUSEA AND VOMITING 11/10/15) penicillin G (Intermediate, HIVES 11/10/15) morphine (CAN'T HAVE R/T GERMAINE ATAXIA 11/10/15) Reconcile Medications Albuterol Sulfate (Proventil Hfa) 6.7 GM HFA.AER.AD 2 PUF INH Q4 Shortness of Breath Azithromycin (Zithromax) 250 MG TABLET 1 DP PO AD COPD/BRONCHITIS 2 the first day followed by 1 for days 2-5 DISPENSE A LIQUID Guaifenesin/Dextromethorphan (Robitussin Cough-Chest Dm Liq) 118 ML LIQUID 5- 10 ML PO Q4 PRN COUGH Methimazole 10 MG TABLET 1 TAB PO DAILY HYPERTHYROIDISM (Reported) Triage Note: [facility] FROM HOME. PER EMS PT CALLED 911 BECAUSE HE HAS BEEN HAVING SI X 2 MONTHS. PT DENIED A PLAN. PT RESTING COMFORTABLY ON THE STRETCHER NOW. PT STATES "I JUST CAN'T TAKE MY LIFE ANYMORE. I FELL LIKE I WANT TO FALL OFF A ANGELITA." PT DENIES ANY ATTEMPTS. PT DENIES DRUG OR ALCOHOL USE. PT STATES HE LIVES WITH HIS GRANDPARENTS AND ITS GETTING HARDER FOR HIS GRANDPARENTS TO TAKE CARE OF HIM. PT STATES "MY GRANDMA HAS DEMENTIA AND MY GRANDPA HAS DIABETES NOW." PT DENIES ANY PAIN. PT DENIES ANY OTHER COMPLAINTS AT THIS TIME. 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 History of MRSA: No History of VRE: No History of CDIFF: No Isolation History: Standard Pneumonia Vaccine Status: Unknown if ever received Surgical History Surgical History: non-contributory Psychosocial History Where do you live Home Who do you live with Grandfather Services at Home Home Health Aide, Social Work What is your primary language Vietnamese Tobacco Use: Quit >30 days ago Other addictive behavior Hx needs help with daily activities Progress Plan of Care: Orders Procedure Date/time Status THYROID STIMULATING HORMONE 09/06 06 Active FREE T4 09/06 06 Active Regular Diet 09/05 B Active EKG 09/05 1600 Active INPT Psych Sitter 09/05 1540 Active Vital Signs 09/05 1240 Active Inpt Psych Teach/Educate 09/05 1240 Active Nutritional Intake, Monitor 09/05 1240 Active Inpt Psych Auricular Acupunctu 09/05 1240 Active Admit to inpatient psych 09/05 1036 Active URINALYSIS 09/05 0729 Complete Nursing Misc 09/05 UNK Active CP [place] Sitter/Safety Monitor 09/05 UNK Active ED CRISIS PSYCH CONSULT 09/04 2016 Active Intake & Output 09/04 1921 Complete Continuous Observation Monitor 09/04 1921 Complete URINE DRUGS OF ABUSE 09/04 1921 Complete ETHANOL 09/04 1921 Complete COMPREHENSIVE METABOLIC PANEL 09/04 1921 Complete CBC WITHOUT DIFFERENTIAL 09/04 1921 Complete Current Medications Sig/Phillip Start time Last Medication Dose Stop Time Status Admin Methimazole 10 MG DAILY 09/06 0900 AC (Tapazole 5 MG Tablet) Albuterol Sulfate 2 PUF Q4 HRS NEEDED PRN 09/05 1400 AC (Ventolin) Laboratory Tests 09/05/17 1102: Urine Color YEL, Urine Clarity CLEAR, Urine pH 6.5, Ur Specific [place] 1.025, Urine Protein NEG, Urine Ketones NEG, Urine Nitrite NEG, Urine Bilirubin NEG, Urine Urobilinogen 0.2, Ur Leukocyte Esterase NEG, Ur Microscopic EXAM NOT REQUIRED, Urine Hemoglobin NEG, Urine Glucose NEG 09/04/17 2211: Urine Opiates Screen < 100, Methadone Screen < 40, Barbiturate Screen < 60, Ur Phencyclidine Scrn < 6.00, Amphetamines Screen < 100, U Benzodiazepines Scrn < 85, Urine Cocaine Screen < 50, Urine Cannabis Screen 77.40 H 09/04/17 1938: Anion Gap 11, Estimated GFR > 60, BUN/Creatinine Ratio 13.3, Glucose 95, Calcium 10.0, Total Bilirubin 0.5, AST 30, ALT 28, Alkaline Phosphatase 70, Total Protein 6.8, Albumin 4.2, Globulin 2.6, Albumin/Globulin Ratio 1.6, CBC w Diff NO MAN DIFF REQ, RBC 4.95, MCV 90.4, MCH 30.5, MCHC 33.7, RDW 13.0, MPV 9.2, Gran % 60.3, Lymphocytes % 29.5, Monocytes % 8.0, Eosinophils % 1.5, Basophils % 0.7, Absolute Granulocytes 3.7, Absolute Lymphocytes 1.8, Absolute Monocytes 0.5 , Absolute Eosinophils 0.1, Absolute Basophils 0, Serum Alcohol < 10.0 Departure Departure Condition: Stable Referrals: Brito Vivek RODRIGUEZ (PCP/Family) Departure Forms: Customer Survey General Discharge Information
[2017-09-05 16:41] VITALS: BP 112/60
--- NOTE | 2017-09-05 17:37 | ED PSYCHIATRIC COMPLAINT ---
History of Present Illness General Chief Complaint: Psychiatric Related Complaint Stated Complaint: UNSPECIFIED DEPRESSION Source: patient, family Exam Limitations: no limitations Vital Signs & Intake/Output Vital Signs & Intake/Output Vital Signs Date Time Temp Pulse Resp B/P B/P Pulse O2 O2 Flow FiO2 Mean Ox Delivery Rate 09/05 1641 56 112/60 09/05 1247 97.8 68 130/75 09/05 1150 98.7 60 18 139/85 99 Room Air Room Air 09/05 0605 98.1 50 14 114/63 100 Room Air 09/04 2334 98.2 50 16 113/74 98 Room Air 09/04 2209 98.7 56 16 112/72 96 Room Air 09/04 1910 99.0 68 16 134/68 96 Room Air ED Intake and Output 09/05 0000 09/04 1200 Intake Total 0 Output Total Balance 0 Intake, Oral 0 Patient 130 lb Weight Weight Reported by Patient Measurement Method Allergies Coded Allergies: azithromycin (From ZITHROMAX) (Intermediate, NAUSEA AND VOMITING 11/10/15) penicillin G (Intermediate, HIVES 11/10/15) morphine (CAN'T HAVE R/T CORWIN ATAXIA 11/10/15) Reconcile Medications Albuterol Sulfate (Proventil Hfa) 6.7 GM HFA.AER.AD 2 PUF INH Q4 Shortness of Breath Azithromycin (Zithromax) 250 MG TABLET 1 DP PO AD COPD/BRONCHITIS 2 the first day followed by 1 for days 2-5 DISPENSE A LIQUID Guaifenesin/Dextromethorphan (Robitussin Cough-Chest Dm Liq) 118 ML LIQUID 5- 10 ML PO Q4 PRN COUGH Methimazole 10 MG TABLET 1 TAB PO DAILY HYPERTHYROIDISM (Reported) Triage Note: [facility] FROM HOME. PER EMS PT CALLED 911 BECAUSE HE HAS BEEN HAVING SI X 2 MONTHS. PT DENIED A PLAN. PT RESTING COMFORTABLY ON THE STRETCHER NOW. PT STATES "I JUST CAN'T TAKE MY LIFE ANYMORE. I FELL LIKE I WANT TO FALL OFF A ANGELITA." PT DENIES ANY ATTEMPTS. PT DENIES DRUG OR ALCOHOL USE. PT STATES HE LIVES WITH HIS GRANDPARENTS AND ITS GETTING HARDER FOR HIS GRANDPARENTS TO TAKE CARE OF HIM. PT STATES "MY GRANDMA HAS DEMENTIA AND MY GRANDPA HAS DIABETES NOW." PT DENIES ANY PAIN. PT DENIES ANY OTHER COMPLAINTS AT THIS TIME. Triage Nurses Notes Reviewed? 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 Patient reports that he lives with his grandparents. He reports he lost his grandparents very much but he feels that his care at home and she is not very good. He's been increasingly depressed. He reports that the other young individual in the house that lives there that's his cousin is a drug addict. He feels very depressed and upset. Denies any alcohol or drug use. Denies any other associated symptoms. (Collins Underwood) Past History Travel History Traveled to [place] past 21 day No Medical History Any Pertinent Medical History? 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 No (Collins Underwood) Review of Systems Review of Systems Constitutional: Reports: no symptoms. EENTM: Reports: no symptoms. Respiratory: Reports: no symptoms. Cardiovascular: Reports: no symptoms. GI: Reports: no symptoms. Genitourinary: Reports: no symptoms. Musculoskeletal: Reports: no symptoms. Skin: Reports: no symptoms. Neurological/Psychological: Reports: see HPI. Hematologic/Endocrine: Reports: no symptoms. Immunologic/Allergic: Reports: no symptoms. All Other Systems: Reviewed and Negative (Collins Underwood) Physical Exam Physical Exam General Appearance: no apparent distress, alert, mild distress Head: atraumatic Eyes: Bilateral: normal appearance. Ears, Nose, Throat: normal ENT inspection, hearing grossly normal Neck: normal inspection Respiratory: normal breath sounds, no respiratory distress Cardiovascular: regular rate/rhythm Neurological/Psychiatric: awake, alert, depressed affect Appearance/Memory/Insight: appropriate appearance Behavoir/Eye Contact/Speech: cooperative Thoughts/Hallucinations: no apparent hallucination Skin: intact, normal color, warm/dry SAD PERSONS SAD PERSONS Response Value Male Sex? yes 1 Depression/Hopelessness? yes 2 Rational Thinking Loss? yes 2 Single//? yes 1 Total 6 SAD PERSONS Done? yes (Selvin ACHARYA,Collins) Progress Differential Diagnosis: dementia, drug intoxication, drug overdose, drug withdrawal, Depression, anxiety, PTSD, Plan of Care: Orders Procedure Date/time Status THYROID STIMULATING HORMONE 09/06 599 Active FREE T4 09/06 06 Active Regular Diet 09/05 B Active EKG 09/05 1600 Active INPT Psych Sitter 09/05 1540 Active Vital Signs 09/05 1240 Active Inpt Psych Teach/Educate 09/05 1240 Active Nutritional Intake, Monitor 09/05 1240 Active Inpt Psych Auricular Acupunctu 09/05 1240 Active Admit to inpatient psych 09/05 1036 Active URINALYSIS 09/05 0729 Complete Nursing Misc 09/05 UNK Active CP South Sitter/Safety Monitor 09/05 UNK Active ED CRISIS PSYCH CONSULT 09/04 2016 Active Intake & Output 09/04 1921 Complete Continuous Observation Monitor 09/04 1921 Complete URINE DRUGS OF ABUSE 09/04 1921 Complete ETHANOL 09/04 1921 Complete COMPREHENSIVE METABOLIC PANEL 09/04 1921 Complete CBC WITHOUT DIFFERENTIAL 09/04 1921 Complete Current Medications Sig/Phillip Start time Last Medication Dose Stop Time Status Admin Methimazole 10 MG DAILY 09/06 0900 AC (Tapazole 5 MG Tablet) Albuterol Sulfate 2 PUF Q4 HRS NEEDED PRN 09/05 1400 AC (Ventolin) Laboratory Tests 09/05/17 1102: Urine Color YEL, Urine Clarity CLEAR, Urine pH 6.5, Ur Specific [place] 1.025, Urine Protein NEG, Urine Ketones NEG, Urine Nitrite NEG, Urine Bilirubin NEG, Urine Urobilinogen 0.2, Ur Leukocyte Esterase NEG, Ur Microscopic EXAM NOT REQUIRED, Urine Hemoglobin NEG, Urine Glucose NEG 09/04/17 2211: Urine Opiates Screen < 100, Methadone Screen < 40, Barbiturate Screen < 60, Ur Phencyclidine Scrn < 6.00, Amphetamines Screen < 100, U Benzodiazepines Scrn < 85, Urine Cocaine Screen < 50, Urine Cannabis Screen 77.40 H 09/04/178: Anion Gap 11, Estimated GFR > 60, BUN/Creatinine Ratio 13.3, Glucose 95, Calcium 10.0, Total Bilirubin 0.5, AST 30, ALT 28, Alkaline Phosphatase 70, Total Protein 6.8, Albumin 4.2, Globulin 2.6, Albumin/Globulin Ratio 1.6, CBC w Diff NO MAN DIFF REQ, RBC 4.95, MCV 90.4, MCH 30.5, MCHC 33.7, RDW 13.0, MPV 9.2, Gran % 60.3, Lymphocytes % 29.5, Monocytes % 8.0, Eosinophils % 1.5, Basophils % 0.7, Absolute Granulocytes 3.7, Absolute Lymphocytes 1.8, Absolute Monocytes 0.5 , Absolute Eosinophils 0.1, Absolute Basophils 0, Serum Alcohol < 10.0 (Collins Underwood) Departure Departure Disposition: HOME OR SELF CARE Condition: Stable Clinical Impression Primary Impression: Depression Referrals: Brito Vivek RODRIGUEZ (PCP/Family) Departure Forms: Customer Survey General Discharge Information Psych Admission Note Psychiatric Admission: I have seen and evaluated ALANNA ARRINGTON. I have also reviewed all the pertinent lab results and diagnostic results. ALANNA ARRINGTON will be admitted to our inpatient Psychiatric unit for treatment and care. (Collins Underwood) PA/BOBBIN TRUCKER Co-Sign Statement Statement: ED Attending supervision documentation- [] I saw and evaluated the patient. I have also reviewed all the pertinent lab results and diagnostic results. I agree with the findings and the plan of care as documented in the PA's/BOBBIN TRUCKER's documentation. [X] I have reviewed the ED Record and agree with the PA's/BOBBIN TRUCKER's documentation. [] Additions or exceptions (if any) to the PAs/BOBBIN TRUCKER's note and plan are summarized below: [] (Ashley RODRIGUEZ,Timothy Zapata)
[2017-09-05 19:52] VITALS: BP 121/64
--- NOTE | 2017-09-06 08:33 | CP SOUTH PROGRESS NOTE PSYCH ---
Psych (Inpt) Progress Note Progress Note Laboratory Tests 09/06 09/05 TSH (0.270 - 4.200 uIU/mL) 7.360 H Free T4 (0.79 - 2.35 ng/dL) 0.80 Urine Color (YEL,AMB,STR) YEL Urine Clarity (CLEAR) CLEAR Urine pH (5.0 - 8.0) 6.5 Ur Specific [place] (1.001 - 1.035) 1.025 Urine Protein (NEG,<30 MG/DL) NEG Urine Ketones (NEG) NEG Urine Nitrite (NEG) NEG Urine Bilirubin (NEG) NEG Urine Urobilinogen (0.1 - 1.0 EU/dl) 0.2 Ur Leukocyte Esterase (NEG) NEG Ur Microscopic EXAM NOT REQUIRED Urine Hemoglobin (NEG) NEG Urine Glucose (N MG/DL) NEG Vital Signs Date Time Temp Pulse Resp B/P B/P Pulse O2 O2 Flow 09/06 1951 98.0 56 121/64 09/05 1641 56 112/60 09/05 1247 97.8 68 130/75 09/05 1150 98.7 60 18 139/85 99 Room Air Room Air Mental status examination: The patient is a thin young white male in a wheelchair. He was calm and cooperative. Showed reduced psychomotor activity because of his neurological condition (Corwin ataxia) slowed, dysarthric speech, constricted affect, mood is "down", denied wishing or thinking of suicide denied violent thoughts or thoughts of homicide coherent, no thoughts disorder, no delusions difficulty hearing adequate , alert and oriented x3, intact, Assessment: 27 year old single White male with Friedreichs Ataxia, called 911 with suicidal thinking. Presents with withdrawal, poor motivation, low energy and impaired sleep; intermittent suicidal thinking over the last 5-6 months; in context of debilitating muscular dystrophy, near total care, inadequate social network ( friends), and inadequate home care services. Diagnosis(es): major depressive disorder Treatment Plan: start Sertraline 50 mg daily May use PRN ativan for sleep/insomnia Groups, family support, work with SW and team to set up outpatient services and see if any more in home services can be added. Sitter for ADLs - Include all active medical diagnosis that require tx DSM 5 Diagnosis(es): major depressive disorder - Initial Tx Plan for Active Psych & Medical Conditions Treatment Plan: milieu therapy, antidepressant medication, outpatient planning, sitter for assistance in basic functions. - Factors that would help patient function - in a less restrictive setting. Factors: severe medical illness, high risk suicidal thoughts (run wheelchair into a river ), worsening depression - address with medication, groups, outpatient planning, therapy DICTATED BY: Radha Jules MD DATE/TIME DICTATED:09/05/171357 QUANTOMETER OPERATOR:CRISS DATE/TIME TRANSCRIBED:09/05/171357 REPORT NUMBER:[id number] CONFIDENTIAL, DO NOT COPY WITHOUT APPROPRIATE AUTHORIZATION. <Electronically signed by Radha Jules MD> 09/05/171408 CC: Report Status: Signed Report #: [id number] Page[p pg] ADDENDUM: Luda Jules MD on 09/05/17 at 194 Addendum Note Addendum Discussed any issues with starting SSRI for Luisito with developer prover mechanical, rec just for baseline EKG with Qtc. He is amenable to medications, can discuss tmr after EKG (ordered for today). (ordered for today). - in a less restrictive setting. Factors: severe medical illness, high risk suicidal thoughts (run wheelchair into a river ), worsening depression - address with medication, groups, outpatient planning, therapy DICTATED BY: Radha Jules MD DATE/TIME DICTATED:09/05/171357 QUANTOMETER OPERATOR:CRISS DATE/TIME TRANSCRIBED:09/05/171357 REPORT NUMBER:[id number] CONFIDENTIAL, DO NOT COPY WITHOUT APPROPRIATE AUTHORIZATION. <Electronically signed by Radha Jules MD> 09/05/171408 CC: Report Status: Signed Report #: [id number] Page[p pg] ADDENDUM: Luda Jules MD on 09/05/17 at 1941 Addendum Note Addendum Discussed any issues with starting SSRI for Luisito with developer prover mechanical, rec just for baseline EKG with Qtc. He is amenable to medications, can discuss tmr after EKG (ordered for today).
[2017-09-06 12:05] VITALS: BP 119/68
--- NOTE | 2017-09-06 12:08 | SOCIAL WORKER SOCIAL HX PSYCH ---
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 The patient has become wheelchair bound and requires assistance for most activities of daily living. He presents calm and cooperative and had good participation in the evaluation. He did appear to struggle with some questions asked and needed them to be asked in different ways. He states that he has been depressed and he started to have suicidal ideations. He rates his depression a 9 out of 10 and his anxiety a 9 out of 10, 10 being the most severe. The patient states that he has never had any suicidal ideations until recently and feels that it became out of control yesterday. He states that he has never attempted suicide and did not have a plan yesterday. He denies any homicidal ideations. He states he has been feeling helpless, hopeless and useless with sleep and appetite disturbances. He reports that he has also had difficulty with energy, motivation and concentration. The patient reports that he has never had any treatment for his mental health issues. He states that he has been using Cannabis, however states that he is trying to stop using it. He denies any substance abuse treatment history. He states "that everything is difficult," noting that he requires assistance for almost all activities of daily living, secondary to his Fredreichs Ataxia. He denies any history of trauma or abuse. He states that he is not in a relationship and does not have any children. He states that he resides with his grandparents and that his aunts help to care for him. He is not sure what would be helpful at this time. Primary Language? Lao Living Situation Other Living Arrangement: relative's/guardian's adam (lives with grandparents ) Feel Safe Where You Are Living Yes Feel Safe in Relationships? Yes Allergies - Coded Allergies: azithromycin (From ZITHROMAX) (Intermediate, NAUSEA AND VOMITING 11/10/15) penicillin G (Intermediate, HIVES 11/10/15) morphine (CAN'T HAVE R/T GERMAINE ATAXIA 11/10/15) Current Medications - Scheduled Medications Albuterol Sulfate (Proventil Hfa) 6.7 GM HFA.AER.AD 2 PUF INH Q4 Shortness of Breath #1 INHAL Prescribed by Amado Aguilar MD on 11/10/15 Azithromycin (Zithromax) 250 MG TABLET 1 DP PO AD COPD/BRONCHITIS #6 TAB Prescribed by Kai Callejas MD on 11/10/15 Methimazole 10 MG TABLET 1 TAB PO DAILY HYPERTHYROIDISM #100 (Reported) Entered as Reported by Fermín Richter on 09/04/171924 Scheduled PRN Medications Guaifenesin/Dextromethorphan (Robitussin Cough-Chest Dm Liq) 118 ML LIQUID 5- 10 ML PO Q4 PRN COUGH #1 Prescribed by Amado Aguilar MD on 11/10/15 Past History Past Medical History Neurological: dementia (freidrich ataxia) EENT: NONE Cardiovascular: Cardiomyopathy Respiratory: NONE Gastrointestinal: NONE Hepatic: NONE Renal: NONE Musculoskeletal: MUSCULAR DYSTROPHY GERMAINE ATAXIA 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 No Explain: He said he is not aware of any Mother's Age (Current/): 36 Relationship w/Mother: really good Father's Age (Current/): 63 Relationship w/Father: "Not bad" Any Sibling(s)? Yes (Step siblings) Sibling's Gender(s)/Age(s): male Sibling 1: (Did not find out ages), female Sibling 2: Relationship w/Sibling(s): He responded by saying he hasn't seen them in five years Relationship w/Friends: I do not know" I dont think they like me." Family Psych/Sub Abuse/Add Hx: drug of choice, diagnosis (father PTSD) Other Comments: Cousin had substance abuse history Abuse/Trauma History Trauma History/Current Trauma: Denies History of Trauma/Abuse Treatment? No Abuse/Trauma Treatment: NA Legal History Legal Guardian/Address/Phone: Grandparents Current Legal Status: none Pending Court Dates: NA Have you ever been arrested No Number of Arrests: 0 Hx of Juvenile Legal Charges? No Hx of Adult Legal Charges? No Civil Proceedings: NA Domestic Relations Court: NA Child Protective Serv Involvmnt NA Consultant [employer]. Vice President [employer] (Ex ) N/A Psychosocial History Primary Support System: grandparent(s) Strengths/Capabilities: The patient resides at home, with supportive family. Weaknesses: needs total care Physical Limitations (Interventions): He has been diagnosed with Fredreichs Ataxia Last Physical: 3 years ago History of Seizures? No Last Seizure: NA History of Blackouts? No ADL Limitations: The patient requires full care [place]/Social/Peer Relations He does not think they like him Childhood Latter-Day: Evangelical Current Orthodoxy Affiliation: Evangelical Is Spirituality Important to You? "Yes, but it is not the most important thing " Patient's Ethnicity: White Cultural/Ethnic Issues: Cymro Are There Developmental Issues? No Milestones Achieved: fine motor, gross motor Psychiatric Treatment History Psych Treatment Inpatient Treatment No Outpatient Treatment No Location of Treatment N/A Reason for Treatment N/A Dates of Treatment N/A Response to Treatment N/A Current Transitional Care Nurse: [facility] Diagnosis: N/A Risk Factors: chronic/serious med cond., high anxiety/distress, substance abuse, male Substance Use/Abuse History Drug Use/Abuse:Min 12 mo hx Substance Used/Abused Marijuana First Use Unknown Last Used Unclear How much used/taken Unclear How often 1x weekly For how long Unclear Route of use Inhalation Have Had Periods of Sobriety? No Explain: One been off of it for one week Have You Ever Attended AA? Yes Do You Attend AA Currently? Yes Symptoms of Use: N/A Substance Abuse Treatment Substance Abuse Treatment Inpatient Treatment No Outpatient Treatment No Location of Treatment N/A Reason for Treatment N/A Dates of Treatment N/A Response to Treatment N/A Sexual History Sexually Active No # of partners 0 Sexual Concerns: None noted Education History Highest Level of Education: high school/GED Number of College Years: 0 College Degree/Major: none Preferred Learning Style: Unknown HX of Learning Difficulties: None reported Barriers to Learning: None reported Special Communication Needs: None reported Employment History Employment Disability Not in Labor Force: Disabled Vocation/Occupational Hx: N/A No. of Jobs in Last 5 Years: 0 History Have You Been in The ? No Date of Discharge: N/A Current Mental Status Mental Status Orientation: Person, Place, Situation Affect: WNL Speech: Soft (Somewhat slowed) Neuro-vegetative: Appetite Decreased, Concentration Poor, Energy Decreased, Helpless, Sleep Disturbance Appearance Appearance- Dress/Hygiene: The patient was sitting up in the group room and was cooperative and engaged, He was wearing hospital scrubs Behaviors Thought Process: WNL Thought Content: WNL Memory: WNL Insight: WNL SI/HI Risk Assessment Past Suicidal Ideation/Attempts Yes Current Suicidal Ideation/Att No Past Homicidal Ideation/Att: No Current Homicidal Ideation/Attempts No Degree of Intent: The patient stated that he recently started to have suicidal ideations. He denies any history of suicide attempts. Danger To: Self Gravely Disabled: N/A Lethality Ratin - Conclusion and Recommendations for treatment - and discharge planning Summary: The patient has supportive grandparents that he is living with. He will work on way to reduce his feelings of depression. He was cooperative and engaged when completing this social. He will need support with daily activities.
[2017-09-06 16:04] VITALS: BP 127/63
--- NOTE | 2017-09-06 17:22 | SOCIAL WORKER PROG NOTE PSYCH ---
Social Work Progress Note Progress Note This publications writer met with patient, who stated that he came to because "I'm depressed." He identified primary stressors as his grandmother's dementia, his grandfather's diabetes and interpersonal stressors with his cousin. Patient stated that he had been experiencing SI in the past (though denied any plan with this publications writer; nursing indicated during the team meeting this morning that patient reported a plan to drive his wheelchair into the river). He denied any SI today. Patient stated that he had not been receiving any psychiatric outpatient treatment, but would like referrals. He stated that he has been receiving in home PT/OT and visiting nurse services. He requests an increase in visiting nurse services. He was unaware of any names of these agencies. Patient reported MJ use, 1-2 times per week of about 1/4 ounce per week. He denied any other substance use. When asked about AH, patient stated that he occassionally hears eagles or car doors slamming. He denied VH or other hallucinations. He denied HI. Patient is agreeable to a family meeting with his cousin, Yao Goddard [phone]. He identified another cousin who assists the patient, however states that this cousin is not reliable. Patient is interested in IOP, but unsure about transportation due to the cousin being unreliable.
[2017-09-06 19:53] VITALS: BP 113/59
[2017-09-07 08:31] VITALS: BP 119/74
--- NOTE | 2017-09-07 08:36 | CP SOUTH PROGRESS NOTE PSYCH ---
Psych (Inpt) Progress Note Progress Note Treatment team (JESSICA, RN, Group and Activities Therapist, and psychiatrist) discussed Pt.'s progress, treatment plan, and aftercare plans. Vital Signs: Date Time Temp Pulse B/P 09/07 0831 96.2 58 119/74 09/06 1953 98.6 64 113/59 09/06 1604 61 127/63 Mental status examination: The patient was interviewed in his room in his bed. He was alert and oriented to time, place, and person. He was calm and cooperative. He showed slowed, dysarthric speech, constricted affect, he reported that he is starting to feel better, he denied feeling hopeless. He denied wishing or thinking of suicide, denied violent thoughts or thoughts of homicide, He was coherent, no thoughts disorder, no delusions, difficulty hearing, adequate Assessment: Luisito Short is a 27-year old Single White male with Friedreichs Ataxia who was admitted to [facility] Inpatient unit with suicidal thinking (intermittent suicidal thinking over the last 5-6 months; Diagnoses: Major depressive disorder Friedreichs Ataxia Treatment Plan Update: Continue Sertraline 50 mg daily May use PRN ativan for sleep/insomnia Aftercare planning
[2017-09-07 12:04] VITALS: BP 102/55
[2017-09-07 15:48] VITALS: BP 103/50
--- NOTE | 2017-09-07 19:04 | SOCIAL WORKER PROG NOTE PSYCH ---
Social Work Progress Note Progress Note SW met with pt 1:1 in the common area, he was sitting with a patient sitter watching TV. He expressed having difficulty hearing me throughout the conversation. Pt states he is beginning to like it here. However, he misses going outside for fresh air and he doen't get to move his limbs (no OT/PT) he claims since he has been hospitalized. Pt reports that he doesn't get enough help at home. I only get an Aide for one hour per day, 3 times weekly. "I need more help". He states his grandmother recently had surgery on her hand and she is getting older and not able to do for him as much as she did before. Pt shared that being at home with limited help is really getting harder for him to manage and it makes him feel sad and depressed. Pt. denies current thoughts of suicide. Pt denies AV/VH. Pt is interested in full home care services and would like this to be set up inorder for him to return home with more help as he transitions back to the community.
[2017-09-07 20:13] VITALS: BP 123/70
--- NOTE | 2017-09-08 08:19 | CP SOUTH PROGRESS NOTE PSYCH ---
Psych (Inpt) Progress Note Progress Note Vital Signs Date Time Temp Pulse B/P B/P O2 09/09 0758 98.0 62 121/76 09/07 2012 97.1 59 123/70 Mental Status examination: alert & oriented to time, place, and person calm and cooperative slow, dysarthric speech, constricted affect, Mood is "better," denies feeling hopeless, denies wishing or thinking of suicide denied violent thoughts or thoughts of homicide, coherent, no thoughts disorder, no delusions ? 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 Since his admission, Pt. has been denying thoughts of suicide Diagnoses: Major depressive disorder Friedreichs Ataxia Treatment Plan Update: Continue Sertraline 50 mg daily Continue PRN ativan for sleep/insomnia Aftercare planning
[2017-09-08 08:58] VITALS: BP 121/76
[2017-09-08 12:21] VITALS: BP 126/59
[2017-09-08 16:38] VITALS: BP 118/76
[2017-09-08 20:04] VITALS: BP 128/70
--- NOTE | 2017-09-09 08:14 | CP SOUTH PROGRESS NOTE PSYCH ---
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 Pt. has been denying thoughts of suicide since September 05, 2017 Diagnoses: Major Depressive Disorder Friedreichs Ataxia Treatment Plan Update: Continue Sertraline 50 mg daily Continue PRN ativan for sleep/insomnia
[2017-09-09 08:15] VITALS: BP 127/75
[2017-09-09 12:09] VITALS: BP 109/57
[2017-09-09 16:11] VITALS: BP 97/60
[2017-09-09 17:53] VITALS: BP 110/63
[2017-09-09 20:03] VITALS: BP 133/61
--- NOTE | 2017-09-10 07:58 | CP SOUTH PROGRESS NOTE PSYCH ---
See Addendum Psych (Inpt) Progress Note Progress Note Vital Signs Date Time Temp Pulse B/P 09/10 822 97.1 88 116/52 09/09 2002 97.9 68 133/61 09/09 1753 66 110/63 Mental Status Examination: Luisito described an episode of paranoia that lasted about 3 hours in his estimation. This was last night. He reported that he felt that somebody put the CPR mask on his on his bed for reason he thinks that that people in the unit including staff were up to something. He reported that he still have some lingering feelings of that this morning. He denied that it is a daily feeling but that he has experienced that at home a couple of times. He reported that the frequency of the paranoia as "once in a while". He denied hearing any mumbling voices. He did report that sometime last week and denied that it has been going on since. 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 Pt. has been denying thoughts of suicide since September 05, 2017. Today was the first time he reports an episode of paranoia he reported that last night he felt that people in the unit may be up to something against him. He reported that he felt that somebody put the CPR mask on his bed for reason and somebody is causing him to be constipated. Diagnoses (Updated 09/10/2017): Major Depressive Disorder ? with psychotic features (paranoia) Friedreichs Ataxia rule out Unspecified Psychotic Disorder Treatment Plan Update: Add Risperdal 0.5 mg twice daily Continue Sertraline 50 mg daily. Continue PRN ativan for sleep/insomnia. Fasting lipid panel and hemoglobin A 1C for tomorrow morning
[2017-09-10 08:23] VITALS: BP 116/52
[2017-09-10 12:10] VITALS: BP 96/60
[2017-09-10 16:24] VITALS: BP 124/74
--- NOTE | 2017-09-10 19:24 | SOCIAL WORKER PROG NOTE PSYCH ---
Social Work Progress Note Progress Note Clinician unable to meet with pt he was in an AA meeting on the unit. Phone contact with Edelmira hugo's aunt she will call back on 09/11/17 with a date and time for a family meeting.
[2017-09-10 20:01] VITALS: BP 120/69
[2017-09-11 07:42] VITALS: BP 121/71
--- NOTE | 2017-09-11 07:59 | CP SOUTH PROGRESS NOTE PSYCH ---
Psych (Inpt) Progress Note Progress Note Treatment team (JESSICA, RN, Group and Activities Therapist, and psychiatrist) discussed Pt.'s progress, treatment plan, and aftercare plans. Vital Signs Date Time Temp Pulse B/P B/P O2 09/11 0742 97.4 73 121/71 09/10 2000 97.5 73 120/69 09/10 1624 76 124/74 Mental Status Examination: Luisito was alert & oriented to time, place, and person. He reported his ears being plugged, thinks it is wax, had this before result with drops.. Denied ear pain. He denied hallucinations and denied any further episodes of paranoia. He denied hearing any mumbling voices. He did report that sometime last week and denied that it has been going on since. 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 Pt. has been denying thoughts of suicide since September 05, 2017. 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 Pt. has been denying thoughts of suicide since September 05, 2017. Today was the first time he reports an episode of paranoia he reported that last night he felt that people in the unit may be up to something against him. He reported that he felt that somebody put the CPR mask on his bed for reason and somebody is causing him to be constipated. Diagnoses (Updated 09/10/2017): Major Depressive Disorder ? with psychotic features (paranoia) Friedreichs Ataxia rule out Unspecified Psychotic Disorder Treatment Plan Update: Add Risperdal 0.5 mg twice daily Continue Sertraline 50 mg daily. Continue PRN ativan for sleep/insomnia. Fasting lipid panel and hemoglobin A 1C for tomorrow morning Continue PRN ativan for sleep/insomnia. Fasting lipid panel and hemoglobin A 1C for tomorrow morning
[2017-09-11] MEDS ORDERED: PROVENTIL HFA6.7 GM INH (10:18)
[2017-09-11] MEDS ORDERED: TAPAZOLE5 MG PO (10:34)
[2017-09-11] MEDS ORDERED: DOCUSATE SODIU100 M3 PO (10:34)
[2017-09-11] MEDS ORDERED: SERTRALINE HCL50 MG PO (10:34)
--- NOTE | 2017-09-11 10:35 | Patient Discharge Instructions ---
Psych Discharge Inst General Discharge Information Reason for Admission: voicing thoughts of suicide Psy Discharge Primary Diag+ Major Depressive Disorder Summary Tests/Major Procedures Lab Hemoglobin A1c 5.0 % 09/11/17 0645 Studies Pending at DC: none Patient Instructions Contact Information Your Psychiatrist on [facility] was Dallas Hubbard MD * If you are experiencing an emergency related to this hospitalization, please call [phone] to contact the treating psychiatrist or the psychiatrist-on- call. * To Request a copy of your medical records, please contact the Medical Records Department at [phone]. * To request results of studies pending at the time of discharge, please call [phone]. * Continue your Medications until directed to stop by your Healthcare provider. General Medication Information Please continue to take your new medications and your continued home medications , unless otherwise indicated on your discharge medication list, or unless directed by your MD or CYLINDER TESTER to stop them. Special Instructions Diet Regular Activity Normal - Tobacco Use Treatment Offered Post DC Medications Offered: Not Applicable Post DC Tobacco Treatment Plan: Not Applicable - EtOH/Drug Use D/O Treatment Offered Post DC Medications Offered: NA-No EtOH/Drug Use D/O Post DC EtOH/SubAbuse [place] Plan: NA-No EtOH/Drug Use D/O Advance Directives Does the Patient have Medical Advance Directives No/Refused further info Does Pt have Psychiatric Advance Directives? No/Refused further info Does Patient have a Designated Surrogate Decision Maker: No Information About Psychiatric Advance Directives Provided? Refused Discharge Plan Post Hospital Treatment Plan: Outpatient psychiatrist and Psychiatric CYLINDER TESTER
--- NOTE | 2017-09-11 10:42 | DISCHARGE SUMMARY REPORT-PSYCH ---
Visit Information Visit Dates/Diagnosis' Admission Date: 09/05/17 Discharge Date: 09/11/17 Reason for Admission: voicing thoughts of suicide Psy Discharge Primary Diag: Major Depressive Disorder Hospital Course Significant Lab Findings: Lab Hct 44.7 % 09/04/171937 Hgb 15.1 G/DL 09/04/171937 Course Complications: The patient did not have any complications while he was on the inpatient psychiatric unit. Allergies: Coded Allergies: azithromycin (From ZITHROMAX) (Intermediate, NAUSEA AND VOMITING 11/10/15) penicillin G (Intermediate, HIVES 11/10/15) morphine (CAN'T HAVE R/T GERMAINE ATAXIA 11/10/15) Hospital Course/TX Response: 09/05/2017: Dr. Pitt's Impression and Plan: 27 year old gentleman without treated psychiatric history, current diagnosis of Friedreichs Ataxia, called 911 with suicidal thinking. Presents with withdrawal , poor motivation, low energy and impaired sleep; intermittent suicidal thinking over the last 5-6 months; in context of debilitating muscular dystrophy, near total care, inadequate social network (friends), and inadequate home care services. Plan: Luisito is interested in medication for his mood, notably SSRI, and we discussed indications, length of treatment and potential AE. Aunt will bring wheelchair for him, so he can be in the milieu Groups, family support, work with SW and team to set up outpatient services and see if any more in home services can be added. Sitter for ADLs 09/06/2017: start Sertraline 50 mg daily May use PRN ativan for sleep/insomnia. 09/07/2017: Continue Sertraline 50 mg daily May use PRN ativan for sleep/insomnia Aftercare planning. 09/08/2017: No changes in the patient's treatment plan or medications. 09/09/2017: No changes in the patient's treatment plan or medications. 09/10/2017: Add Risperdal 0.5 mg twice daily as patient reported an episode of paranoia the night before , he said it lasted for about 3 hours Continue Sertraline 50 mg daily. Continue PRN ativan for sleep/insomnia. Fasting lipid panel and hemoglobin A 1C for tomorrow morning 09/11/2017: Treatment team (JESSICA, RN, Group and Activities Therapist, and psychiatrist) discussed Pt.'s progress, treatment plan, and aftercare plans. Vital Signs Date Time Temp Pulse B/P B/P O2 09/11 0742 97.4 73 121/71 09/10 2000 97.5 73 120/69 09/10 1624 76 124/74 Mental Status Examination: Luisito was alert & oriented to time, place, and person. He reported his ears being plugged, thinks it is wax, had this before result with drops.. Denied ear pain. He denied hallucinations and denied any further episodes of paranoia. He denied hearing any mumbling voices. He did report that sometime last week and denied that it has been going on since. 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 Pt. has been denying thoughts of suicide since September 05, 2017. Today, he denied paranoia, denied any hallucinations & there was no thought disorder Discharge Diagnoses: Major Depressive Disorder Friedreichs Ataxia Treatment Plan Update: D/C Home today Discharge HBIPS - Tobacco Use Treatment Offered Post DC Medications Offered: Not Applicable Post DC Tobacco Treatment Plan: Not Applicable - EtOH/Drug Use D/O Treatment Offered Post DC Medications Offered: NA-No EtOH/Drug Use D/O Post DC EtOH/SubAbuse [place] Plan: NA-No EtOH/Drug Use D/O Metabolic Screening - Screen if on a Neuroleptic Medication - Metabolic screening should include: - Blood Pressure, BMI, Glucose or Hgb A1c, & a - Lipid profile from within the past 365 days. Metabolic Screening Not Applicable, patient not on a neuroleptic. Discharge Instructions General Discharge Information Multiple Neuroleptics: Not Applicable Discharge Diet Regular Discharge Activity Normal DC Disposition: Home Referrals Ordered Referrals Provider Referral 09/11/17 For Groups: [[facility]] Pt will resume [facility] services for tomorrow including a social work referral [facility] [phone] [address], [place] Provider Referral 09/13/17 For Groups: [[facility]] Pt was referred to the [facility], . They will connect with pt and family on 09/13/17 for individual therapy. Provider Referral 10/02/17 For Providers: [Janee] For Groups: [ Outpatient] Pt has a follow up with Outpatient Psychiatry Dr. Weller on: 10/02/17 at 3pm at: [address] [place], [place] [phone] Prescriptions Stop taking the following medications: Guaifenesin/Dextromethorphan (Robitussin Cough-Chest Dm Liq) 118 ML LIQUID ORAL Every 4 hours as needed for COUGH Qty = 1 Azithromycin (Zithromax) 250 MG TABLET ORAL As Directed Qty = 6 Methimazole (Methimazole) 10 MG TABLET ORAL DAILY Qty = 100 Continue taking these medications: Albuterol Sulfate (Proventil Hfa) 6.7 GM HFA.AER.AD 2 Puff Inhale through mouth Every 4 hours Qty = 1 Comments: Last Taken:09/09/17 Time:6PM This prescription has been renewed Start taking the following new medications: Sertraline HCl (Sertraline HCl) 50 MG TABLET 50 Milligram ORAL DAILY Qty = 30 No Refills Comments: Last Taken:09/11/17 Time:8AM Docusate Sodium (Docusate Sodium) 100 MG CAPSULE 100 Milligram ORAL TWICE DAILY Qty = 60 No Refills Comments: Last Taken:09/11/17 Time:8AM Methimazole (Tapazole) 5 MG TABLET 5 Milligram ORAL DAILY Qty = 30 No Refills Comments: Last Taken:09/11/17 Time:8AM Guaifenesin/Dextromethorphan (Adult Robitussin Peak Cold Liq) 100 MG-10 MG/5 ML LIQUID 10 Milliliters ORAL EVERY 6 HOURS NEEDED as needed for cough Qty = 210 No Refills Comments: Last Taken:NOT USED IN THE HOSPITAL Time: Studies Pending at Discharge none Copies To: [facility]
[2017-09-11] MEDS ORDERED: ADULT ROBITUSS118 ML PO (10:43)
[2017-09-11 12:26] VITALS: BP 143/72
--- NOTE | 2017-09-11 13:00 | SOCIAL WORKER PROG NOTE PSYCH ---
Social Work Progress Note Progress Note Pt has a follow up appt with [facility] Faxed Referral(s) 1 Referred To: [facility] Transition of Care Documents sent: [facility] Instructions, Health Summary Faxed to: [facility] Fax #: [phone] Faxed by: Laura Aleman Date faxed: 09/11/17 Time Faxed: [phone] Faxed Referral(s) 2 Referred To: [facility] Transition of Care Documents sent: W10 Faxed to: [facility] Fax #: [phone] Faxed by: Laura Aleman Date faxed: 09/11/17 Time Faxed: [phone] Faxed Referral(s) 3 Referred To: OP Transition of Care Documents sent: [facility] Instructions, Health Summary Faxed to: Outpatient Fax #: [phone] Faxed by: Laura Aleman Date faxed: 09/11/17 Time Faxed: [phone]
== END 2017-09-11 16:25 | DRG 881 ==
LOC: ERH 19:06 → CP SOUTH 09-05 10:36 → ERHI 09-05 10:36 → ENTRNSPT 09-05 12:07 → EDTRNSPTSTS 09-05 12:11 → EDTRNSPT 09-05 12:11 → CP SOUTH 09-05 12:22 → CMPTRNSPT 09-05 12:29 → CP SOUTH 09-06 10:18
PROVIDERS: Physician Assistant Medical; Psychiatry & Neurology Psychiatry
DX: F32.9 Major depressive disorder, single episode, unspecified (principal)
CPT/HCPCS: 36415; 80307; 81003; 93005; 93010; G0480; J3490